=== PATIENT | female | born 1990 | race Two or more races ===

== ENCOUNTER 2021-08-13 15:47 | Emergency (ER) | payer OTHER ==
[~2021-08-13] VITALS: Ht 170.2 cm; Wt 72.6 kg
== END 2021-08-13 22:10 | disposition home or self-care (01) ==
LOC: ER 15:47
DX: S06.0X9A Concussion with loss of consciousness of unspecified duration, initial encounter (principal); S01.82XA Laceration with foreign body of other part of head, initial encounter; W18.09XA Striking against other object with subsequent fall, initial encounter; Y93.89 Activity, other specified; Y92.89 Other specified places as the place of occurrence of the external cause; Y99.8 Other external cause status